=== PATIENT | male | born 2000 | race Asian ===

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

== ENCOUNTER 2022-04-11 20:00 | Emergency (ER) | payer OTHER ==
[~2022-04-11] VITALS: Ht 180.3 cm; Wt 95.5 kg
[2022-04-11 22:42] VITALS: BP 139/70
== END 2022-04-11 22:45 | disposition home or self-care (01) ==
LOC: M ED 20:00
DX: R22.42 Localized swelling, mass and lump, left lower limb (principal)